=== PATIENT | male | born 1960 | race Caucasian/White ===

== ENCOUNTER 2019-01-31 01:20 | Emergency (ER) | payer MEDICARE, OTHER ==
[~2019-01-31] VITALS: Ht 180.3 cm; Wt 70.5 kg
[~2019-01-31 01:20] MED LIST: IBUP-1572 PO
== END 2019-01-31 02:14 | disposition home or self-care (01) ==
LOC: MERGE 01:21 → ER 01:21
DX: G56.31 Lesion of radial nerve, right upper limb (principal); I10 Essential (primary) hypertension; J43.9 Emphysema, unspecified; Z79.899 Other long term (current) drug therapy; Z98.890 Other specified postprocedural states
CPT/HCPCS: 29125; 73100; 99283

== ENCOUNTER 2019-10-01 08:41 | Emergency (ER) | payer MEDICARE ==
[~2019-10-01] VITALS: Ht 180.3 cm; Wt 70.5 kg
[2019-10-01 08:44] VITALS: BP 152/93
== END 2019-10-01 11:10 | disposition home or self-care (01) ==
LOC: ER 08:42
DX: S62.101A Fracture of unspecified carpal bone, right wrist, initial encounter for closed fracture (principal); S43.401A Unspecified sprain of right shoulder joint, initial encounter; I10 Essential (primary) hypertension; Z79.1 Long term (current) use of non-steroidal anti-inflammatories (NSAID); Z59.0 Homelessness; Z98.890 Other specified postprocedural states; X58.XXXA Exposure to other specified factors, initial encounter; Y93.89 Activity, other specified; Y92.89 Other specified places as the place of occurrence of the external cause; Y99.8 Other external cause status
CPT/HCPCS: 29125; 73030; 73110; 99284

== ENCOUNTER 2019-11-19 04:58 | Emergency (ER) | payer MEDICARE ==
[~2019-11-19] VITALS: Ht 180.3 cm; Wt 70.5 kg
[2019-11-19] MEDS ORDERED: amox tr/potassium clavulanate 875/125mg TAB PO ONE (06:40)
[2019-11-19] MEDS ORDERED: bacitracin 15gm ointment TP ONE (06:45)
[2019-11-19] MEDS ORDERED: AMOX-419 PO (07:00)
[2019-11-19 07:22] VITALS: BP 189/102
== END 2019-11-19 07:26 ==
LOC: ER 04:59
DX: S51.812A Laceration without foreign body of left forearm, initial encounter (principal); S51.832A Puncture wound without foreign body of left forearm, initial encounter; F10.10 Alcohol abuse, uncomplicated; I10 Essential (primary) hypertension; Z59.0 Homelessness; Z98.890 Other specified postprocedural states; W54.0XXA Bitten by dog, initial encounter; Y93.89 Activity, other specified; Y92.89 Other specified places as the place of occurrence of the external cause; Y99.8 Other external cause status
CPT/HCPCS: 99284

== ENCOUNTER 2019-12-31 16:07 | Emergency (ER) | payer MEDICARE ==
[~2019-12-31] VITALS: Ht 180.3 cm; Wt 75.0 kg
[2019-12-31 16:54] LABS: BASOPHILS # (AUTO) 0.1 X10'3 (0-0.2); EOSINOPHILS # (AUTO) 0.1 X10'3 (0-0.9); EOSINOPHILS % (AUTO) 0.8 % (0-6); MEAN PLATELET VOLUME 7.6 FL (7.4-10.4); RED BLOOD COUNT 4.21 X10'6 (4.70-6.10)
[2019-12-31 16:55] LABS: BASOPHILS % (AUTO) 1.2 % (0-1); HEMATOCRIT 38.5 % (42.0-52.0); HEMOGLOBIN 13.4 g/dl (14.0-17.9); LYMPHOCYTES # (AUTO) 2.1 X10'3 (1.1-4.8); LYMPHOCYTES % (AUTO) 24.7 % (21-51); MEAN CORPUSCULAR HEMOGLOBIN 31.8 PG (27.0-31.0); MEAN CORPUSCULAR HGB CONC 34.7 g/dL (33.0-36.5); MEAN CORPUSCULAR VOLUME 91.6 FL (78-98); MONOCYTES # (AUTO) 0.7 X10'3 (0-0.9); MONOCYTES % (AUTO) 8.7 % (2-12); NEUTROPHILS # (AUTO) 5.4 X10'3 (1.8-7.7); NEUTROPHILS % (AUTO) 64.6 % (42-75); PLATELET COUNT 200 X10'3 (140-440); RED CELL DISTRIBUTION WIDTH 12.5 % (11.5-14.5); WHITE BLOOD COUNT 8.4 X10'3 (4.5-11.0)
[2019-12-31 17:09] LABS: ALANINE AMINOTRANSFERASE 18 U/L (12-78); ALBUMIN 3.3 G/DL (3.4-5.0); ALKALINE PHOSPHATASE 70 IU/L (46-116); ANION GAP 5 (8-16); ASPARTATE AMINO TRANSFERASE 12 U/L (10-37); BILIRUBIN,TOTAL 0.4 MG/DL (0.1-1.0); BLOOD UREA NITROGEN 12 MG/DL (7-18); BUN/CREATININE RATIO 14.1 (5.4-32.0); CALCIUM 8.4 MG/DL (8.5-10.1); CHLORIDE 95 MMOL/L (99-107); CREATININE 0.85 MG/DL (0.60-1.10); GLUCOSE 88 MG/DL (70-104); POTASSIUM 3.6 MMOL/L (3.5-5.1); SODIUM 128 MMOL/L (135-145); TOTAL CARBON DIOXIDE 28.2 MMOL/L (24-32); TOTAL PROTEIN 6.7 G/DL (6.4-8.2); eGFR > 90 ML/MIN
[2019-12-31] MEDS ORDERED: normal saline 1000ML IV soln IVB ONE (18:00)
[2019-12-31 19:46] VITALS: BP 144/77
[2019-12-31 20:39] LABS: ALBUMIN 3.2 G/DL (3.4-5.0); ANION GAP 6 (8-16); BLOOD UREA NITROGEN 11 MG/DL (7-18); BUN/CREATININE RATIO 13.4 (5.4-32.0); CALCIUM 8.4 MG/DL (8.5-10.1); CHLORIDE 102 MMOL/L (99-107); CREATININE 0.82 MG/DL (0.60-1.10); GLUCOSE 129 MG/DL (70-104); POTASSIUM 3.6 MMOL/L (3.5-5.1); SODIUM 136 MMOL/L (135-145); TOTAL CARBON DIOXIDE 27.8 MMOL/L (24-32); eGFR > 90 ML/MIN
== END 2019-12-31 20:35 ==
LOC: ER 16:07
DX: R07.9 Chest pain, unspecified (principal); E87.1 Hypo-osmolality and hyponatremia; I10 Essential (primary) hypertension; I25.2 Old myocardial infarction; J43.9 Emphysema, unspecified; F20.9 Schizophrenia, unspecified; F15.90 Other stimulant use, unspecified, uncomplicated; F12.90 Cannabis use, unspecified, uncomplicated; F17.200 Nicotine dependence, unspecified, uncomplicated; Z98.890 Other specified postprocedural states; Z72.89 Other problems related to lifestyle; Z59.0 Homelessness; Z79.899 Other long term (current) drug therapy
CPT/HCPCS: 36415; 71045; 80048; 80053; 84484; 85025; 93005; 99285; J7030

== ENCOUNTER 2021-10-22 18:44 | Emergency (ER) | payer MEDICARE ==
[~2021-10-22] VITALS: Ht 180.3 cm; Wt 72.7 kg
[2021-10-22 19:07] VITALS: BP 165/95
[2021-10-22] MEDS ORDERED: ACET-1017 PO (19:19)
== END 2021-10-22 19:20 | disposition home or self-care (01) ==
LOC: ER 18:45
DX: R52 Pain, unspecified (principal); I10 Essential (primary) hypertension; I25.2 Old myocardial infarction; J43.9 Emphysema, unspecified; F20.9 Schizophrenia, unspecified; F12.90 Cannabis use, unspecified, uncomplicated; F15.90 Other stimulant use, unspecified, uncomplicated; Z59.00 Homelessness unspecified; Z86.69 Personal history of other diseases of the nervous system and sense organs; Z98.890 Other specified postprocedural states; Z72.89 Other problems related to lifestyle; Z79.899 Other long term (current) drug therapy
CPT/HCPCS: 99282

== ENCOUNTER 2022-07-14 13:23 | Emergency (ER) | payer MEDICARE ==
[~2022-07-14] VITALS: Ht 180.3 cm; Wt 75.0 kg
[2022-07-14 14:33] VITALS: BP 179/103
[2022-07-14] MEDS ORDERED: ibuprofen tablet 400 MG TABLET PO ONE (15:40)
== END 2022-07-14 18:29 | disposition home or self-care (01) ==
LOC: ER 13:24
DX: M25.511 Pain in right shoulder (principal); M21.941 Unspecified acquired deformity of hand, right hand; F17.200 Nicotine dependence, unspecified, uncomplicated; I11.9 Hypertensive heart disease without heart failure; J44.9 Chronic obstructive pulmonary disease, unspecified; F12.10 Cannabis abuse, uncomplicated; F15.10 Other stimulant abuse, uncomplicated; Z56.0 Unemployment, unspecified; F20.9 Schizophrenia, unspecified; Z79.899 Other long term (current) drug therapy; Z79.1 Long term (current) use of non-steroidal anti-inflammatories (NSAID)
CPT/HCPCS: 73030; 99283; A4565

== ENCOUNTER 2022-09-05 15:05 | Emergency (ER) | payer OTHER, MEDICARE ==
[~2022-09-05] VITALS: Ht 180.3 cm; Wt 75.0 kg
[2022-09-05 15:23] VITALS: BP 140/86
[2022-09-05] MEDS ORDERED: IBUP-1986 PO (15:53)
[2022-09-05] MEDS ORDERED: ibuprofen tablet 400 MG TABLET PO ONE (15:55)
== END 2022-09-05 16:37 | disposition home or self-care (01) ==
LOC: ER 15:06
DX: M79.642 Pain in left hand (principal); I10 Essential (primary) hypertension; J44.9 Chronic obstructive pulmonary disease, unspecified; F12.90 Cannabis use, unspecified, uncomplicated; F15.20 Other stimulant dependence, uncomplicated; Z59.00 Homelessness unspecified
CPT/HCPCS: 29125; 73130; 99283; A6449

== ENCOUNTER 2022-09-05 17:25 | Emergency (ER) | payer MEDICARE ==
[~2022-09-05 17:25] MED LIST changes: +IBUP-1986 PO
--- NOTE | 2022-09-05 17:47 | NUR ---
PATIENT LEFT BEFORE TRIAGE COULD BE COMPLETED. DEPARTED FROM ER, AMBULATORY IN GOOD CONDITION.
== END 2022-09-05 17:50 | disposition left against medical advice (07) ==
LOC: ER 17:25
DX: M54.9 Dorsalgia, unspecified (principal); Z53.21 Procedure and treatment not carried out due to patient leaving prior to being seen by health care provider

== ENCOUNTER 2024-10-06 16:45 | Emergency (ER) | payer MEDICARE ==
[~2024-10-06] VITALS: Ht 180.3 cm; Wt 70.9 kg
[2024-10-06 18:06] LABS: BASOPHILS % (AUTO) 0.5 % (0-1); EOSINOPHILS # (AUTO) 0.1 X10'3 (0-0.9); EOSINOPHILS % (AUTO) 1.3 % (0-6); HEMATOCRIT 39.5 % (42.0-52.0); HEMOGLOBIN 13.3 g/dl (14.0-17.9); LYMPHOCYTES # (AUTO) 1.9 X10'3 (1.1-4.8); LYMPHOCYTES % (AUTO) 26.3 % (21-51); MEAN CORPUSCULAR HEMOGLOBIN 33.5 PG (27.0-31.0); MEAN CORPUSCULAR HGB CONC 33.7 g/dL (33.0-36.5); MEAN CORPUSCULAR VOLUME 99.5 FL (78-98); MEAN PLATELET VOLUME 7.4 FL (7.4-10.4); MONOCYTES # (AUTO) 0.8 X10'3 (0-0.9); MONOCYTES % (AUTO) 11.8 % (2-12); NEUTROPHILS # (AUTO) 4.3 X10'3 (1.8-7.7); NEUTROPHILS % (AUTO) 60.1 % (42-75); PLATELET COUNT 229 X10'3 (140-440); RED BLOOD COUNT 3.97 X10'6 (4.70-6.10); WHITE BLOOD COUNT 7.1 X10'3 (4.5-11.0)
[2024-10-06 18:24] LABS: ALBUMIN 3.6 G/DL (3.4-5.0); ANION GAP 12 (8-16); BLOOD UREA NITROGEN 13 MG/DL (7-18); BUN/CREATININE RATIO 11.6 (10.0-20.0); CHLORIDE 99 MMOL/L (99-107); CREATININE 1.12 MG/DL (0.60-1.10); ETHANOL 277 MG/DL (<10); GLUCOSE 101 MG/DL (70-104); POTASSIUM 3.3 MMOL/L (3.5-5.1); SODIUM 136 MMOL/L (135-145); THYROID STIMULATING HORMONE 4.98 ulU/ml (0.34-4.50); TOTAL CARBON DIOXIDE 25.4 MMOL/L (24-32); eCRCL 66 ML/MIN; eGFR 66 ML/MIN
[2024-10-06] MEDS: LORazepam 1 MG tablet PO ONE (18:24)
[2024-10-06 18:47] LABS: FREE T4 (FREE THYROXINE) 0.86 NG/DL (0.73-1.40)
[2024-10-07 03:00] LABS: BILIRUBIN,URINE NEGATIVE (Neg); CLARITY,URINE CLEAR (Clear); COLOR,URINE YELLOW (Yellow); GLUCOSE, URINE NEGATIVE (Neg); KETONES,URINE NEGATIVE (Neg); LEUKOCYTE ESTERASE ,URINE NEGATIVE (Neg); NITRITES, URINE NEGATIVE (Neg); OCCULT BLOOD,URINE NEGATIVE (Neg); PROTEIN,URINE NEGATIVE (Neg); UROBILINOGEN,URINE 0.2 E.U/dL (0.2-1.0)
[2024-10-07 03:09] LABS: URINE AMPHETAMINE SCREEN NEGATIVE (Neg); URINE BARBITUATE SCREEN NEGATIVE (Neg); URINE BENZODIAZEPINES SCREEN NEGATIVE (Neg); URINE CANNABINOID SCREEN POSITIVE (Neg); URINE COCAINE SCREEN NEGATIVE (Neg); URINE METHADONE SCREEN NEGATIVE (Neg); URINE OPIATE SCREEN NEGATIVE (Neg); URINE PHENCYCLIDINE SCREEN NEGATIVE (Neg)
[2024-10-07 03:37] LABS: UA COLLECTION TYPE CLN CATCH MIDSTREAM
[2024-10-07 04:12] VITALS: BP 149/75; PULSE 66; TEMP 99; O2SAT 96
[2024-10-07 07:50] VITALS: RESP 16
== END 2024-10-07 12:40 | disposition home or self-care (01) ==
LOC: ER 16:46
DX: F10.129 Alcohol abuse with intoxication, unspecified (principal); T51.92XA Toxic effect of unspecified alcohol, intentional self-harm, initial encounter; F20.9 Schizophrenia, unspecified; I10 Essential (primary) hypertension; I25.2 Old myocardial infarction; J43.9 Emphysema, unspecified; Z98.890 Other specified postprocedural states; Z20.822 Contact with and (suspected) exposure to COVID-19; F15.90 Other stimulant use, unspecified, uncomplicated; F12.90 Cannabis use, unspecified, uncomplicated; R94.6 Abnormal results of thyroid function studies; R45.851 Suicidal ideations; Y90.8 Blood alcohol level of 240 mg/100 ml or more; Y92.89 Other specified places as the place of occurrence of the external cause
CPT/HCPCS: 36415; 80048; 80305; 81003; 84439; 84443; 85025; 87811; 99284; G0480; 80320

== ENCOUNTER 2024-10-24 23:17 | Emergency (ER) | payer OTHER, MEDICARE ==
[~2024-10-24] VITALS: Ht 180.3 cm; Wt 76.7 kg
[2024-10-25 00:46] VITALS: BP 169/99; PULSE 89; RESP 20; TEMP 98.7; O2SAT 97
== END 2024-10-25 00:47 | disposition home or self-care (01) ==
LOC: ER 23:17
DX: T69.021A Immersion foot, right foot, initial encounter (principal); T69.022A Immersion foot, left foot, initial encounter; Z59.00 Homelessness unspecified; I10 Essential (primary) hypertension; J43.9 Emphysema, unspecified; F20.9 Schizophrenia, unspecified; F12.90 Cannabis use, unspecified, uncomplicated; F15.90 Other stimulant use, unspecified, uncomplicated; Z98.890 Other specified postprocedural states
CPT/HCPCS: 99281

== ENCOUNTER 2025-01-10 19:49 | Emergency (ER) | payer OTHER, MEDICARE ==
[~2025-01-10] VITALS: Ht 177.8 cm; Wt 65.6 kg
[2025-01-10 23:10] LABS: BASOPHILS # (AUTO) 0.1 X10'3 (0-0.2); BASOPHILS % (AUTO) 1.3 % (0-1); EOSINOPHILS # (AUTO) 0.1 X10'3 (0-0.9); EOSINOPHILS % (AUTO) 1.9 % (0-6); HEMATOCRIT 43.1 % (42.0-52.0); HEMOGLOBIN 14.7 g/dl (14.0-17.9); LYMPHOCYTES # (AUTO) 2.2 X10'3 (1.1-4.8); LYMPHOCYTES % (AUTO) 30.8 % (21-51); MEAN CORPUSCULAR HEMOGLOBIN 33.1 PG (27.0-31.0); MEAN CORPUSCULAR HGB CONC 34.1 g/dL (33.0-36.5); MEAN CORPUSCULAR VOLUME 96.9 FL (78-98); MEAN PLATELET VOLUME 7.2 FL (7.4-10.4); MONOCYTES # (AUTO) 0.5 X10'3 (0-0.9); MONOCYTES % (AUTO) 6.4 % (2-12); NEUTROPHILS # (AUTO) 4.3 X10'3 (1.8-7.7); NEUTROPHILS % (AUTO) 59.6 % (42-75); PLATELET COUNT 238 X10'3 (140-440); RED BLOOD COUNT 4.45 X10'6 (4.70-6.10); RED CELL DISTRIBUTION WIDTH 12.9 % (11.5-14.5); WHITE BLOOD COUNT 7.3 X10'3 (4.5-11.0)
[2025-01-10] MEDS: ibuprofen tablet 400 MG TABLET PO STA (23:16)
[2025-01-10 23:26] LABS: ALBUMIN 3.8 G/DL (3.4-5.0); ANION GAP 13 (8-16); BLOOD UREA NITROGEN 16 MG/DL (7-18); BUN/CREATININE RATIO 18.6 (10.0-20.0); CALCIUM 9.2 MG/DL (8.5-10.1); CHLORIDE 101 MMOL/L (99-107); CREATININE 0.86 MG/DL (0.60-1.10); ETHANOL 81 MG/DL (<10); GLUCOSE 74 MG/DL (70-104); POTASSIUM 3.9 MMOL/L (3.5-5.1); SODIUM 136 MMOL/L (135-145); THYROID STIMULATING HORMONE 2.47 ulU/ml (0.34-4.50); TOTAL CARBON DIOXIDE 22.4 MMOL/L (24-32); eCRCL 78 ML/MIN; eGFR 89 ML/MIN
[2025-01-10] MEDS ORDERED: NO HOME MEDS (23:45)
[2025-01-11 01:45] LABS: BILIRUBIN,URINE NEGATIVE (Neg); CLARITY,URINE CLEAR (Clear); COLOR,URINE YELLOW (Yellow); GLUCOSE, URINE NEGATIVE (Neg); KETONES,URINE 15 mg/dl (Neg); LEUKOCYTE ESTERASE ,URINE NEGATIVE (Neg); NITRITES, URINE NEGATIVE (Neg); OCCULT BLOOD,URINE NEGATIVE (Neg); PROTEIN,URINE NEGATIVE (Neg); UROBILINOGEN,URINE 0.2 E.U/dL (0.2-1.0)
[2025-01-11 01:46] LABS: UA COLLECTION TYPE CLN CATCH MIDSTREAM
[2025-01-11 02:32] LABS: URINE AMPHETAMINE SCREEN NEGATIVE (Neg); URINE BARBITUATE SCREEN NEGATIVE (Neg); URINE BENZODIAZEPINES SCREEN NEGATIVE (Neg); URINE CANNABINOID SCREEN POSITIVE (Neg); URINE COCAINE SCREEN NEGATIVE (Neg); URINE METHADONE SCREEN NEGATIVE (Neg); URINE OPIATE SCREEN NEGATIVE (Neg); URINE PHENCYCLIDINE SCREEN NEGATIVE (Neg)
[2025-01-11 13:24] VITALS: BP 148/84; PULSE 62; RESP 16; TEMP 98.4; O2SAT 97
== END 2025-01-11 13:20 | disposition home or self-care (01) ==
LOC: ER 19:50
DX: R45.851 Suicidal ideations (principal); M54.9 Dorsalgia, unspecified; F20.9 Schizophrenia, unspecified; I10 Essential (primary) hypertension; J43.9 Emphysema, unspecified; Z20.822 Contact with and (suspected) exposure to COVID-19
CPT/HCPCS: 36415; 80048; 80305; 80320; 81003; 84443; 85025; 87811; 99284